=== PATIENT | male | born 1960 | race Hispanic/Latino ===

== ENCOUNTER 2018-06-18 11:49 | Emergency (ER) | payer SELFPAY ==
[~2018-06-18] VITALS: Ht 165.1 cm; Wt 87.1 kg
[~2018-06-18 11:49] MED LIST: AMLODIPINE BESY10 MG PO; LISINOPRIL10 MG PO; METFORMIN HCL500 MG PO
--- OUTSIDE RECORDS SUMMARY | 2018-06-18 11:52 | XMS REPORT | Summary of Care ---
Author Author [facility] Organization [facility] Address Unknown Phone Unavailable Encounter HQ Encntr_aligloria(FIN) [id number] Date(s): 02/20/17 - 02/20/17 [facility] [address], [address] [place] [address] [phone] Discharge Disposition: Home or Self Care Attending Physician: Brandon Mares MD Vital Signs No data available for this section Problem List Condition Effective Dates Status Health Status Informant Diabetes(Confirmed) Active Diabetes(Confirmed) Active Hypertension(Confirm Active ed) Simple Active obesity(Confirmed) Allergies, Adverse Reactions, Alerts Substance Reaction Severity Status NKDA Active Medications Bactrim DS 800 mg- 160 mg oral tablet 1 tab, PO, BID, X 10 day, # 20 tab, 0 Refill(s), Pharmacy: [facility] [id number] Start Date: 02/20/17 Stop Date: 03/02/17 Status: Ordered Results No data available for this section Immunizations No data available for this section Procedures No data available for this section Social History Social History Type Response Substance Abuse Use: None. Alcohol Current, Type Beer. Frequency: 3-5 times per week. Previous treatment: None. Smoking Status Current every day smoker; Ready to change: No; Concerns about tobacco use in household: No; Exposure to Tobacco Smoke None; Cigarette Smoking Last 365 Days Unable to obtain; Reg Smoking Cessation Counseling No Assessment and Plan No data available for this section
--- OUTSIDE RECORDS SUMMARY | 2018-06-18 11:52 | XMS REPORT | Summary of Care ---
Author Author [facility] Organization [facility] Address Unknown Phone Unavailable Encounter HQ Estephaniar_nichole(FIN) [id number] Date(s): 03/17/17 - 03/17/17 [facility] [address], [address] [place] [address] [phone] Attending Physician: Brandon Mares MD Vital Signs No data available for this section Problem List Condition Effective Dates Status Health Status Informant Diabetes(Confirmed) Active Diabetes(Confirmed) Active Hypertension(Confirm Active ed) Simple Active obesity(Confirmed) Allergies, Adverse Reactions, Alerts Substance Reaction Severity Status NKDA Active Medications No data available for this section Results No data available for this section [...] to obtain; Reg Smoking Cessation Counseling No entered on: 03/31/17 Assessment and Plan No data available for this section
--- OUTSIDE RECORDS SUMMARY | 2018-06-18 11:52 | XMS REPORT | Summary of Care ---
Author Author [facility] Organization [facility] Address Unknown Phone Unavailable Encounter HQ Compantr_nichole(FIN) [id number] Date(s): 04/28/17 - 04/28/17 [facility] [address], [address] [place] [address] [phone] Attending Physician: Brandon Mares MD Vital Signs [...]
--- OUTSIDE RECORDS SUMMARY | 2018-06-18 11:52 | XMS REPORT | Summary of Care ---
Author Author [facility] Organization [facility]rology [facility] Address Unknown Phone Unavailable Encounter FLORENCIO Klein(FIN) [id number] Date(s): 03/31/17 - 03/31/17 [facility] [address], [address] [place] [address] [phone] Discharge Disposition: Home or Self Care Attending Physician: Brandon Mares MD Vital Signs Most recent to 1 oldest [Reference Range]: Height 165.1 cm (03/31/17 12:51 PM) Blood Pressure 147/71 mmHg [90-140/60-90 mmHg] *HI* (03/31/17 12:51 PM) Peripheral Pulse 93 bpm Rate [60-100 bpm] (03/31/17 12:51 PM) Weight 85.568 kg (03/31/17 12:51 PM) Body Mass Index 31.39 m2 (03/31/17 12:51 PM) Problem List Condition Effective Dates Status Health Status Informant Diabetes(Confirmed) Active Diabetes(Confirmed) Active Hypertension(Confirm Active ed) Simple Active obesity(Confirmed) Allergies, Adverse Reactions, Alerts Substance Reaction Severity Status NKDA Active Medications No Known Medications Results No data available for this section [...]
--- OUTSIDE RECORDS SUMMARY | 2018-06-18 11:52 | XMS REPORT | Summary of Care ---
Author Author [facility] Organization [facility] Address Unknown Phone Unavailable Encounter HQ Compantr_nichole(FIN) [id number] Date(s): 02/03/17 - 02/03/17 [facility] [address], [address] [place] [address] [phone] Discharge Disposition: Home or Self Care Attending Physician: Brandon Mares MD Vital Signs Most recent to 1 oldest [Reference Range]: Blood Pressure 118/84 mmHg [90-140/60-90 mmHg] (02/03/17 11:32 AM) Peripheral Pulse 75 bpm Rate [60-100 bpm] (02/03/17 11:32 AM) Problem List Condition Effective Dates Status Health Status Informant Diabetes(Confirmed) Active Simple Active obesity(Confirmed) Allergies, Adverse Reactions, Alerts Substance Reaction Severity Status NKDA Active Medications No Known Medications Results No data available for this section Immunizations No data available for this section Procedures No data available for this section Social History Social History Type Response Smoking Status Unknown if ever smoked; Ready to change: No; Concerns about tobacco use in household: No; Exposure to Tobacco Smoke None; Cigarette Smoking Last 365 Days Unable to obtain; Reg Smoking Cessation Counseling No Assessment and Plan No data available for this section
--- OUTSIDE RECORDS SUMMARY | 2018-06-18 11:52 | XMS REPORT | Summary of Care ---
Author Author [facility] Organization [facility] Address Unknown Phone Unavailable Encounter HQ Compantr_nichole(FIN) [id number] Date(s): 03/15/17 - 03/15/17 [facility] [address], [address] [place] [address] [phone] Attending Physician: Brandon Mares MD Vital Signs [...]
--- OUTSIDE RECORDS SUMMARY | 2018-06-18 11:52 | XMS REPORT | Summary of Care ---
Author Author [facility] Organization [facility] Address Unknown Phone Unavailable Encounter HQ Compantr_nichole(FIN) [id number] Date(s): 03/15/17 - 03/15/17 [facility] [address], [address] [place] [address] [phone] Attending Physician: Brandon Mares MD Vital Signs [...] Reg Smoking Cessation Counseling No entered on: 02/08/17 Assessment and Plan No data available for this section
--- OUTSIDE RECORDS SUMMARY | 2018-06-18 11:52 | XMS REPORT | Continuity of Care Document ---
Author Author [facility] Address Unknown Phone Unavailable Problems Problem Status Onset Date Classification Date Reported Comments Source UNK Active 02/03/2017 [facility] Diabetes Active Problem 08/04/2017 [facility] Simple obesity Active Problem 08/04/2017 [facility] Hypertension Active Problem 08/04/2017 [facility], [facility] Medications Medication Details Route Status Patient Instructions Ordering Provider Order Date Source Sulfamethoxazole 800 MG / Trimethoprim 160 MG Oral Tablet [Bactrim] 1 tab, PO, BID, X 10 day, # 20 tab, 0 Refill(s), Pharmacy: [facility] [id number] Active 02/20/2017 [facility] Acetaminophen 325 MG / Hydrocodone Bitartrate 7.5 MG Oral Tablet [[place] 7.5/325] 1 tab, PO, Q6H, X 10 day, # 40 tab, 0 Refill(s), given to patient Active 02/15/2017 [facility] lidocaine (ANES) Route: IV, Drug form: INJ, ONCE, Stop date: 02/15/17 12:15:00 [employer] Inactive 02/15/2017 [facility] ketOROLAC (ANES) IV, ONCE Inactive 02/15/2017 [facility] dexamethasone (ANES) Route: IV, Drug form: INJ, ONCE, Stop date: 02/15/17 12:15:00 [employer]IGHT BARREL INSPECTOR Inactive 02/15/2017 [facility] Cephalexin 500 MG Oral Capsule [Keflex] 500 mg=1 cap, PO, TID, X 7 day, # 21 cap, 0 Refill(s), Pharmacy: [facility] [id number] Active 02/15/2017 [facility] propofol (ANES) Route: IV, Drug form: INJ, ONCE, Stop date: 02/15/17 12:10:00 [employer]REL INSPECTOR Inactive 02/15/2017 [facility] fentaNYL (ANES) Route: IV, Drug form: INJ, ONCE, Stop date: 02/15/17 12:10:00 TIGHT BARREL INSPECTOR Inactive 02/15/2017 [facility] famotidine (ANES) Route: IV, Drug form: INJ, ONCE, Stop date: 02/15/17 12:10:00 TIGHT BARREL INSPECTOR Inactive 02/15/2017 [facility] midazolam (ANES) Route: IV, Drug form: SOLN, ONCE, Stop date: 02/15/17 12:10:00 TIGHT BARREL INSPECTOR Inactive 02/15/2017 [facility] ondansetron (ANES) Route: IV, Drug form: INJ, ONCE, Stop date: 02/15/17 12:00:00 TIGHT BARREL INSPECTOR Inactive 02/15/2017 [facility] ceFAZolin (ANES) Route: IV, Drug form: INJ, ONCE, Stop date: 02/15/17 12:00:00 TIGHT BARREL INSPECTOR Inactive 02/15/2017 [facility] Lactated Ringers Injection IV (ANES) 1000 mL Route: IV, Total Volume: 1,000, Start date: 02/15/17 11:17:00 TIGHT BARREL INSPECTOR, Stop date: 02/15/17 12:17:00 TIGHT BARREL INSPECTOR Inactive 02/15/2017 [facility] Albuterol 0.833 MG/ML / Ipratropium [place] 0.167 MG/ML Inhalant Solution 3 mL, Route: NEB, Dosing Weight 86.08, kg, ONCE, STAT, Start date: 02/15/17 10:52:00 TIGHT BARREL INSPECTOR, Stop date: 02/15/17 10:52:00 TIGHT BARREL INSPECTOR Inactive 02/15/2017 [facility] Calcium Chloride 0.0014 MEQ/ML / Potassium Chloride 0.004 MEQ/ML / Sodium Chloride 0.103 MEQ/ML / Sodium Lactate 0.028 MEQ/ML Injectable Solution 1,000 mL, Rate: 25 ml/hr, Infuse over: 40 hr, Route: IV, Dosing Weight 86.08 kg, Total Volume: 1,000, Start date: 02/15/17 10:52:00 TIGHT BARREL INSPECTOR, Duration: 30 day, Stop date: 03/17/17 10:51:00 TIGHT BARREL INSPECTOR, 2.01, m2 Inactive 02/15/2017 [facility] Lisinopril PO, Daily, 0 Refill(s) Active 02/08/2017 [facility] Invokana PO, Daily, 0 Refill(s) Active 02/08/2017 [facility] Amlodipine PO, Daily, 0 Refill(s) Active 02/08/2017 [facility] Metformin PO, 0 Refill(s) Active 02/08/2017 [facility] Ancef 2 gm, Route: IVPB, ABXQ8H, Dosing Weight 85.511, kg, Start date: 02/07/17 9:00:00 TIGHT BARREL INSPECTOR, Duration: 30 day, Stop date: 03/09/17 1:00:00 TIGHT BARREL INSPECTOR, ABX Indication: Surgical Prophylaxis No Longer Active 02/07/2017 [facility] Allergies, Adverse Reactions, Alerts Substance Category Reaction Severity Reaction type Status Date Reported Comments Source Immunizations Immunization Date Given Site Status Last Updated Comments Source Results Order Name Results Value Reference Range Date Interpretation Comments Source CHEM PANEL eGFR 100 mL/min/1.73m2 02/08/2017 Result Comment: The eGFR is calculated using the CKD-EPI formula. In most young, healthy individuals the eGFR will be >90 mL/min/1.73m2. The eGFR declines with age. An eGFR of 60-89 may be normal in some populations, particularly the elderly, for whom the CKD-EPI formula has not been extensively validated. Use of the eGFR is not recommended in the following populations: Individuals with unstable creatinine concentrations, including patients and those with serious co-morbid conditions. Patients with extremes in muscle mass or diet. The data above are obtained from the National Kidney Disease Education Program (NKDEP) which additionally recommends that when the eGFR is used in patients with extremes of body mass index for purposes of drug dosing, the eGFR should be multiplied by the estimated BMI. [facility] CHEM PANEL Creatinine Lvl 0.77 mg/dL 0.50 - 1.40 02/08/2017 [facility] CHEM PANEL BUN 10 mg/dL 7 - 22 02/08/2017 [facility] CHEM PANEL Glucose Lvl 136 mg/dL 70 - 99 02/08/2017 [facility] CHEM PANEL Sodium Lvl 136 meq/L 135 - 145 02/08/2017 [facility] CHEM PANEL Calcium Lvl 8.8 mg/dL 8.5 - 10.5 02/08/2017 [facility] CHEM PANEL CO2 26 meq/L 24 - 32 02/08/2017 [facility] CHEM PANEL Chloride Lvl 103 meq/L 95 - 109 02/08/2017 [facility] CHEM PANEL Potassium Lvl 3.9 meq/L 3.5 - 5.1 02/08/2017 [facility] CHEM PANEL AGAP 10.9 meq/L 10.0 - 20.0 02/08/2017 [facility] HEMATOLOGY RBC 5.65 M/CMM 4.70 - 6.10 02/08/2017 [facility] HEMATOLOGY WBC 6.9 K/CMM 3.7 - 10.4 02/08/2017 [facility] HEMATOLOGY MCV 85.9 fL 80.0 - 94.0 02/08/2017 [facility] HEMATOLOGY MCHC 34.5 g/dL 32.0 - 36.0 02/08/2017 [facility] MCH 29.6 pg 27.0 - 31.0 02/08/2017 [facility] HEMATOLOGY Hct 48.5 % 42.0 - 54.0 02/08/2017 [facility] HEMATOLOGY Hgb 16.7 g/dL 14.0 - 18.0 02/08/2017 [facility] HEMATOLOGY RDW 13.0 % 11.5 - 14.5 02/08/2017 [facility] HEMATOLOGY MPV 9.4 fL 7.4 - 10.4 02/08/2017 [facility] HEMATOLOGY Platelet 226 K/CMM 133 - 450 02/08/2017 [facility] HEMATOLOGY Segs-Bands # 3.7 K/CMM 1.5 - 8.1 02/08/2017 [facility] HEMATOLOGY Monocytes 10.4 % 2.0 - 12.0 02/08/2017 [facility] HEMATOLOGY Basophils 1.4 % 0.0 - 1.0 02/08/2017 [facility] HEMATOLOGY Eosinophils 0.7 % 0.0 - 4.0 02/08/2017 [facility] HEMATOLOGY Lymphocytes 33.0 % 20.0 - 40.0 02/08/2017 [facility] HEMATOLOGY Segs 54.5 % 45.0 - 75.0 02/08/2017 [facility] HEMATOLOGY Lymphocytes # 2.3 K/CMM 1.0 - 5.5 02/08/2017 [facility] HEMATOLOGY Monocytes # 0.7 K/CMM 0.0 - 0.8 02/08/2017 [facility] HEMATOLOGY Basophils # 0.1 K/CMM 0.0 - 0.2 02/08/2017 [facility] Vital Signs Vital Sign Value Date Comments Source Weight 85.568 03/31/2017 [facility] BMI Calculated 31.39 03/31/2017 [facility] Systolic (mm Hg) 147 03/31/2017 [facility] Diastolic (mm Hg) 71 03/31/2017 [facility] Heart Rate 93 03/31/2017 [facility] Height 165.1 cm 03/31/2017 [facility] Systolic (mm Hg) 115 02/15/2017 [facility] Diastolic (mm Hg) 62 02/15/2017 [facility] Systolic (mm Hg) 118 02/15/2017 [facility] Diastolic (mm Hg) 65 02/15/2017 [facility] Systolic (mm Hg) 117 02/15/2017 [facility] Diastolic (mm Hg) 75 02/15/2017 [facility] Respitory Rate 13 02/15/2017 [facility] Respitory Rate 12 02/15/2017 [facility] Respitory Rate 11 02/15/2017 [facility] Heart Rate 75 02/08/2017 [facility] Temperature Oral (F) 97.9 F 02/08/2017 [facility] Weight 86.08 02/08/2017 [facility] BMI Calculated 31.58 02/08/2017 [facility] Height 165.1 cm 02/08/2017 [facility] Systolic (mm Hg) 118 02/03/2017 [facility] Diastolic (mm Hg) 84 02/03/2017 [facility] Heart Rate 75 02/03/2017 [facility] Encounters Location Location Details Encounter Type Encounter Number Reason For Visit Attending Provider ADM Date DC Date Status Source Outpatient [id number] [facility] 01/02/2017 Active [facility] Outpatient [id number] [facility] 02/03/2017 Active [facility] Outpatient [id number] [facility] 02/03/2017 02/04/2017 [facility] Day Surgery [id number] [facility] 02/15/2017 02/15/2017 [facility] Outpatient [id number] [facility] 02/20/2017 Active [facility] Outpatient [id number] [facility] 02/20/2017 02/21/2017 [facility] Outpatient [id number] [facility] 03/15/2017 Active [facility] Ambulatory Pre-Reg [id number] [facility] 03/15/2017 03/15/2017 [facility] Outpatient [id number] [facility] 03/17/2017 Active [facility] Ambulatory Pre-Reg [id number] [facility] 03/17/2017 03/17/2017 [facility] Outpatient [id number] [facility] 03/31/2017 [facility] [id number] [facility] 03/31/2017 04/01/2017 [facility] Outpatient [id number] [facility] 04/28/2017 Active [facility] Pre[facility] [id number] [facility] 04/28/2017 04/28/2017 [facility] Procedures Procedure Code Date Perfomer Comments Source
--- OUTSIDE RECORDS SUMMARY | 2018-06-18 11:52 | XMS REPORT | Summary of Care ---
Author Author [facility] Organization [facility] Address Unknown Phone Unavailable Encounter FLORENCIO Klein(MARC) [id number] Date(s): 02/15/17 - 02/15/17 [facility] [address] [place] [address]- Discharge Disposition: Home or Self Care Attending Physician: Brandon Mares MD Referring Physician: Brandon Mares MD Vital Signs 1 2 3 Most recent to oldest [Reference Range]: 165.1 cm (02/08/17 4:07 PM) Height 97.9 DegF (02/08/17 4:07 PM) Temperature Oral [96.4-99.1 DegF] 115/62 mmHg (02/15/17 1:58 PM) 118/65 mmHg (02/15/17 1:15 PM) 117/75 mmHg (02/15/17 1:01 PM) Blood Pressure [90-140/60-90 mmHg] 13 BRMIN *LOW* (02/15/17 1:01 PM) 12 BRMIN *LOW* (02/15/17 12:44 PM) 11 BRMIN *LOW* (02/15/17 12:29 PM) Respiratory Rate [14-20 BRMIN] 75 bpm (02/08/17 4:07 PM) Peripheral Pulse Rate [60-100 bpm] 86.08 kg (02/08/17 4:07 PM) Weight 31.58 m2 (02/08/17 4:07 PM) Body Mass Index Problem List Condition Effective Dates Status Health Status Informant Diabetes(Confirmed) Active Diabetes(Confirmed) Active Hypertension(Confirm Active ed) Simple Active obesity(Confirmed) Allergies, Adverse Reactions, Alerts Substance Reaction Severity Status NKDA Active Medications albuterol-ipratropium 2.5-0.5 mg inhalation solution 3 mL, Route: NEB, Dosing Weight 86.08, kg, ONCE, STAT, Start date: 02/15/17 10:5 2:00 AUTOMATIC MOUNTER, Stop date: 02/15/17 10:52:00 AUTOMATIC MOUNTER Start Date: 02/15/17 Stop Date: 02/15/17 Status: Discontinued amLODIPine PO, Daily, 0 Refill(s) Start Date: 02/08/17 Status: Ordered Ancef 2 gm, Route: IVPB, ABXQ8H, Dosing Weight 85.511, kg, Start date: 02/07/17 9:00:0 0 AUTOMATIC MOUNTER, Duration: 30 day, Stop date: 03/09/17 1:00:00 AUTOMATIC MOUNTER, ABX Indication: Surgic al Prophylaxis Start Date: 02/07/17 Stop Date: 02/16/17 Status: Discontinued ceFAZolin (ANES) Route: IV, Drug form: INJ, ONCE, Stop date: 02/15/17 12:00:00 AUTOMATIC MOUNTER Start Date: 02/15/17 Stop Date: 02/15/17 Status: Completed dexamethasone (ANES) Route: IV, Drug form: INJ, ONCE, Stop date: 02/15/17 12:15:00 AUTOMATIC MOUNTER Start Date: 02/15/17 Stop Date: 02/15/17 Status: Completed famotidine (ANES) Route: IV, Drug form: INJ, ONCE, Stop date: 02/15/17 12:10:00 AUTOMATIC MOUNTER Start Date: 02/15/17 Stop Date: 02/15/17 Status: Completed fentaNYL (ANES) Route: IV, Drug form: INJ, ONCE, Stop date: 02/15/17 12:10:00 AUTOMATIC MOUNTER Start Date: 02/15/17 Stop Date: 02/15/17 Status: Completed Invokana PO, Daily, 0 Refill(s) Start Date: 02/08/17 Status: Ordered Keflex 500 mg oral capsule 500 mg=1 cap, PO, TID, X 7 day, # 21 cap, 0 Refill(s), Pharmacy: [facility] [id number] Start Date: 02/15/17 Stop Date: 02/22/17 Status: Ordered ketOROLAC (ANES) IV, ONCE Start Date: 02/15/17 Stop Date: 02/15/17 Status: Completed Lactated Ringers Injection IV (ANES) 1000 mL Route: IV, Total Volume: 1,000, Start date: 02/15/17 11:17:00 AUTOMATIC MOUNTER, Stop date: 12:17:00 AUTOMATIC MOUNTER Start Date: 02/15/17 Stop Date: 02/15/17 Status: Completed Lactated Ringers Injection IV 1000 mL 1,000 mL, Rate: 25 ml/hr, Infuse over: 40 hr, Route: IV, Dosing Weight 86.08 kg, Total Volume: 1,000, Start date: 02/15/17 10:52:00 AUTOMATIC MOUNTER, Duration: 30 day, Stop date: 03/17/17 10:51:00 AUTOMATIC MOUNTER, 2.01, m2 Start Date: 02/15/17 Stop Date: 02/15/17 Status: Discontinued lidocaine (ANES) Route: IV, Drug form: INJ, ONCE, Stop date: 02/15/17 12:15:00 AUTOMATIC MOUNTER Start Date: 02/15/17 Stop Date: 02/15/17 Status: Completed lisinopril PO, Daily, 0 Refill(s) Start Date: 02/08/17 Status: Ordered metFORMIN PO, 0 Refill(s) Start Date: 02/08/17 Status: Ordered midazolam (ANES) Route: IV, Drug form: SOLN, ONCE, Stop date: 02/15/17 12:10:00 AUTOMATIC MOUNTER Start Date: 02/15/17 Stop Date: 02/15/17 Status: Completed [place] 7.5/325 oral tablet 1 tab, PO, Q6H, X 10 day, # 40 tab, 0 Refill(s), given to patient Start Date: 02/15/17 Stop Date: 02/25/17 Status: Ordered ondansetron (ANES) Route: IV, Drug form: INJ, ONCE, Stop date: 02/15/17 12:00:00 AUTOMATIC MOUNTER Start Date: 02/15/17 Stop Date: 02/15/17 Status: Completed propofol (ANES) Route: IV, Drug form: INJ, ONCE, Stop date: 02/15/17 12:10:00 AUTOMATIC MOUNTER Start Date: 02/15/17 Stop Date: 02/15/17 Status: Completed Results ELECTROLYTES Most recent to 1 oldest [Reference Range]: Sodium Lvl [135-145 136 mEq/L mEq/L] (02/08/17 4:11 PM) Potassium Lvl 3.9 mEq/L [3.5-5.1 mEq/L] (02/08/17 4:11 PM) Chloride Lvl [95-109 103 mEq/L mEq/L] (02/08/17 4:11 PM) CO2 [24-32 mEq/L] 26 mEq/L (02/08/17 4:11 PM) AGAP [10.0-20.0 10.9 mEq/L mEq/L] (02/08/17 4:11 PM) CHEM PANEL Most recent to 1 oldest [Reference Range]: Creatinine Lvl 0.77 mg/dL [0.50-1.40 mg/dL] (02/08/17 4:11 PM) eGFR 100 mL/min/1.73m2 1 *NA* (02/08/17 4:11 PM) BUN [7-22 mg/dL] 10 mg/dL (02/08/17 4:11 PM) Glucose Lvl [70-99 136 mg/dL mg/dL] *HI* (02/08/17 4:11 PM) Calcium Lvl 8.8 mg/dL [8.5-10.5 mg/dL] (02/08/17 4:11 PM) 1Result Comment: The eGFR is calculated using the [...] from the National Kidney Disease Education Program ( NKDEP) which additionally recommends that when the eGFR is used in patients with extremes of body mass index for purposes of drug dosing, the eGFR should be mul tiplied by the estimated BMI. HEMATOLOGY Most recent to 1 oldest [Reference Range]: WBC [3.7-10.4 K/CMM] 6.9 K/CMM (02/08/17 4:11 PM) RBC [4.70-6.10 5.65 M/CMM M/CMM] (02/08/17 4:11 PM) Hgb [14.0-18.0 g/dL] 16.7 g/dL (02/08/17 4:11 PM) Hct [42.0-54.0 %] 48.5 % (02/08/17 4:11 PM) MCV [80.0-94.0 fL] 85.9 fL (02/08/17 4:11 PM) MCH [27.0-31.0 pg] 29.6 pg (02/08/17 4:11 PM) MCHC [32.0-36.0 34.5 g/dL g/dL] (02/08/17 4:11 PM) RDW [11.5-14.5 %] 13.0 % (02/08/17 4:11 PM) Platelet [133-450 226 K/CMM K/CMM] (02/08/17 4:11 PM) MPV [7.4-10.4 fL] 9.4 fL (02/08/17 4:11 PM) Segs [45.0-75.0 %] 54.5 % (02/08/17 4:11 PM) Lymphocytes 33.0 % [20.0-40.0 %] (02/08/17 4:11 PM) Monocytes [2.0-12.0 10.4 % %] (02/08/17 4:11 PM) Eosinophils [0.0-4.0 0.7 % %] (02/08/17 4:11 PM) Basophils [0.0-1.0 1.4 % %] *HI* (02/08/17 4:11 PM) Segs-Bands # 3.7 K/CMM [1.5-8.1 K/CMM] (02/08/17 4:11 PM) Lymphocytes # 2.3 K/CMM [1.0-5.5 K/CMM] (02/08/17 4:11 PM) Monocytes # [0.0-0.8 0.7 K/CMM K/CMM] (02/08/17 4:11 PM) Basophils # [0.0-0.2 0.1 K/CMM K/CMM] (02/08/17 4:11 PM) Immunizations No data available for this section [...]
== END 2018-06-18 12:50 | disposition left against medical advice (07) ==
LOC: ER 11:49
DX: M25.531 Pain in right wrist (principal)